=== PATIENT | female | born 1985 | race Hispanic/Latino ===

== ENCOUNTER 2018-04-23 23:44 | Emergency (ER) | payer OTHER, SELFPAY ==
[2018-04-24] MEDS ORDERED: Diazepam 5 MG TAB ONE (01:19)
== END 2018-04-24 01:33 | disposition home or self-care (01) ==
LOC: ERS 23:44
DX: M54.5 Low back pain (principal); F17.210 Nicotine dependence, cigarettes, uncomplicated
CPT/HCPCS: 99283

== ENCOUNTER 2019-04-16 23:51 | Emergency (ER) | payer SELFPAY ==
[2019-04-17 00:37] LABS: Bilirubin Negative (Negative); Blood, Urine Negative (Negative); Clarity Clear (Clear); Glucose, Urine (Dipstick) Normal (Negative); Leukocyte Negative Leu/uL (Negative); Nitrite Negative (Negative); Protein, Urine (Dipstick) Negative (Neg-Trace); Urobilinogen Normal mg/dL (Less than 2)
[2019-04-17 00:39] LABS: Pregnancy Test - Urine (BHCG) Negative (Negative); Pregu Control Background? CLEAR/WHITE (CLR/WHITE); Pregu Control Bar Appear? YES (CONTROL BAR); Specific Gravity 1.007 (1.002-1.036)
[2019-04-17] MEDS ORDERED: Ketorolac Tromethamine 30 MG/ML VIAL ONE (01:02)
== END 2019-04-17 01:15 | disposition home or self-care (01) ==
LOC: ERS 23:51
DX: R10.2 Pelvic and perineal pain (principal); F17.210 Nicotine dependence, cigarettes, uncomplicated; F41.9 Anxiety disorder, unspecified
CPT/HCPCS: 81003; 81025; 96372; 99284; J1885

== ENCOUNTER 2019-11-15 16:46 | Inpatient (IN) | payer OTHER, SELFPAY ==
[~2019-11-15 16:46] MED LIST: Iopamidol-370 76% 500 ML 1 ML ONE
[2019-11-15 17:29] LABS: #Eosinphils 0.2 thou/uL (0.0-0.7); #Lymphocytes 1.8 thou/uL (1.20-3.40); #Monocytes 0.4 thou/uL (0.11-0.59); #Neutrophils 5.1 thou/uL (1.40-6.50); %Basophils 0.6 % (0.0-1.0); %Eosinophils 2.7 % (0.0-10.0); %Lymphocytes 24.1 % (21.0-51.0); %Neutrophils 67.6 % (42.0-75.0); Hemoglobin 12.6 g/dL (12.0-16.0); Mean Corpuscular HGB CONC 33.3 g/dL (32.0-36.0); Mean Platelet Volume 8.4 fL (7.4-10.4); Platelet Count 247 thou/uL (130-400); RBC Distribution Width 11.3 % (11.5-14.5); Red Blood Cell (RBC) Count 3.92 mill/uL (4.20-5.40); White Blood Cell (WBC) Count 7.5 thou/uL (4.8-10.8)
[2019-11-15 17:38] LABS: BHCG - Serum Negative (NEGATIVE); Pregs Control Background? CLEAR/WHITE (CLR/WHITE); Pregs Control Bar Appear? YES (CONTROL BAR)
[2019-11-15 17:52] LABS: ALT (SGPT) 21 U/L (8-55); AST (SGOT) 13 U/L (5-34); Albumin 3.9 g/dL (3.5-5.0); Alkaline Phosphatase 60 U/L (40-110); Anion Gap 8 mmol/L (10-20); BUN (Urea Nitrogen) 10 mg/dL (7.0-18.7); Bilirubin, Total 0.2 mg/dL (0.2-1.2); Calc. Creatinine Clearance 0 mL/min (70-130); Calcium 8.4 mg/dL (7.8-10.44); Carbon Dioxide 28 mmol/L (22-29); Chloride 108 mmol/L (98-107); Estimated GFR-MDRD Greater than 90; Globulin 2.5 g/dL (2.4-3.5); Glucose 107 mg/dL (70-105); Potassium 3.5 mmol/L (3.5-5.1); Protein, Total 6.4 g/dL (6.0-8.3); Sodium 140 mmol/L (136-145)
--- NOTE | 2019-11-15 18:29 | ULT ---
EXAM: Pelvic ultrasound HISTORY: Pelvic pain for 2 days COMPARISON: 03/29/2013 TECHNIQUE: Multiple grayscale and color Doppler images were obtained in a transabdominal and transvag inal pelvic ultrasound. Spectral analysis of the Doppler waveforms of the ovaries were performed. FINDINGS: CERVIX: No evidence of nabothian cysts. UTERUS: Normal in size without focal abnormality. ENDOMETRIAL STRIPE: 4 mm. No free fluid is seen in the pelvis. RIGHT OVARY: Normal flow without focal mass. LEFT OVARY: Normal flow without focal mass. A dominant follicle seen in the left ovary. IMPRESSION: No significant pelvic abnormality
[2019-11-15] MEDS ORDERED: Ondansetron PF 4 MG/2 ML Vial ONE (18:34)
[2019-11-15] MEDS ORDERED: Ketorolac Tromethamine 30 MG/ML VIAL ONE (18:34)
[2019-11-15 19:00] LABS: Bacteria/HPF 4+ HPF (None Seen); Bilirubin Negative (Negative); Blood, Urine 2+ (Negative); Clarity Turbid (Clear); Glucose, Urine (Dipstick) Normal (Negative); Ketone, Urine Negative (Negative); Leukocyte 500 Leu/uL (Negative); Nitrite 2+ (Negative); Protein, Urine (Dipstick) 50 mg/dL (Neg-Trace); RBC/HPF Greater than 50 HPF (0-3); Specific Gravity, Urine 1.024 (1.002-1.036); Squamous Epithelial 21-50 HPF (0-3); Urobilinogen Normal mg/dL (Less than 2); WBC/HPF 21-50 HPF (0-3)
--- NOTE | 2019-11-15 19:23 | CT ---
CT Abdomen Pelvis W Con: 11/15/2019 6:26 PM CLINICAL INFORMATION: Right flank pain and groin pain COMPARISON: None. TECHNIQUE: Multiple contiguous axial images were obtained and a CT of the abdomen and pelvis with IV contrast. C oronal and sagittal reformats were performed. FINDINGS: Lower Chest: within normal limits. Abdomen: Liver: within normal limits. Bile Ducts: Normal caliber. Gallbladder: Contracted without calcified stones Pancreas: within normal limits. Spleen: within normal limits. Adrenals: Calcifications are seen in the right adrenal gland. No obvious adrenal mass is seen. Kidneys: Nonobstructing calcifications in both kidneys measuring up to 7 mm in size on the left. Ther e is moderate right hydronephrosis. Pelvis: Reproductive Organs: No pelvic masses. Ureters: 4 mm right mid ureteral calcification with moderate right hydroureter. Multiple phleboliths are seen in the pelvis. 2 of the calcifications in the right pelvis are near the right ureterovesical junction and distal ureteral calcification cannot be entirely excluded. The largest of these calcifications measures 4 mm. Bladder: within normal limits. Peritoneum: No ascites or free air, no fluid collection. Bowel: Normal caliber. Normal appendix. Mesentery and Retroperitoneum: No enlarged mesenteric or retroperitoneal lymph nodes. Vessels: Normal. Abdominal Wall: within normal limits. Bones: There is a bone island within the right iliac bone IMPRESSION: 1. Right ureteral calcifications with right-sided hydronephrosis 2. Bilateral nonobstructing renal calcifications
[2019-11-15] MEDS ORDERED: cefTRIAXone\\ROCEPHIN 1 GM VIAL ONE (19:37)
[2019-11-15 20:54] LABS: Bacteria/HPF 4+ HPF (None Seen); Bilirubin Negative (Negative); Blood, Urine 1+ (Negative); Clarity Clear (Clear); Glucose, Urine (Dipstick) Normal (Negative); Ketone, Urine Negative (Negative); Leukocyte 75 Leu/uL (Negative); Nitrite 2+ (Negative); Protein, Urine (Dipstick) Negative (Neg-Trace); RBC/HPF 21-50 HPF (0-3); Squamous Epithelial 0-3 HPF (0-3); Urobilinogen Normal mg/dL (Less than 2); pH, Urine 6.5 (5.0-9.0)
[2019-11-15 20:56] LABS: Specific Gravity, Urine 1.056 (1.002-1.036)
--- NOTE | 2019-11-15 20:57 | PDOC.HHP ---
Hospitalist HPI - History of Present Illness R flank pain History of Present Illness: Patient is a 34 year old female with no PMH who presents to ED for 2 days R flank pain. The pain is 10/10, colicky, intermittent, associated with nausea and vomiting. patient rarely gets UTIs and has never had a kidney stone. the pain radiates to R groin. no dysuria, no vaginal bleeding or discharge, no fever. in ED, pelvic US with no significant abnormalities. UA with UTI. CT w/ muiltiple stones in urinary tract, larges of which is 4mm R ureteral stone w/ R hydronephrosis. Dr Sullivan called and recommended admission w/ antibiotics, IVF, NPO. patient to be admitted for further workup and care. Hospitalist ROS - Review of Systems Constitutional: denies: fever, chills, sweats, weakness, malaise, other Eyes: denies: pain, vision change, conjunctivae inflammation, eyelid inflammation, redness, other ENT: denies: ear pain, ear discharge, nose pain, nose discharge, nose congestion , mouth pain, mouth swelling, throat pain, throat swelling, other Respiratory: denies: cough, dry, shortness of breath, hemoptysis, SOB with excertion, pleuritic pain, sputum, wheezing, other Cardiovascular: denies: chest pain, palpitations, orthopnea, paroxysmal noc. dyspnea, edema, light headedness, other Gastrointestinal: denies: nausea, vomiting, abdominal pain, diarrhea, constipation, melena, hematochezia, other Genitourinary: reports: other (R flank pain). denies: dysuria, frequency, incontinence, hematuria, retention Musculoskeletal: denies: neck pain, shoulder pain, arm pain, back pain, hand pain, leg pain, foot pain, other Skin: denies: rash, lesions, ceci, bruising, other Neurological: denies: weakness, numbness, incoordination, change in speech, confusion, seizures, other All other systems reviewed; all pertinent +/- noted in HPI/Subj - Medication Medications: reviewed, see admission documents Hospitalist History - Past Medical History Other Medical History: no significant pmh - Past Surgical History Other Surgical History: L ovarian cyst removal - Family History Family History: reports: no pertinent history - Social History Smoking Status: Current some day smoker (2 cig/day or so) Alcohol: reports: Rare - Exam General Appearance: NAD, awake alert Eye: PERRL, anicteric sclera ENT: normocephalic atraumatic, no oropharyngeal lesions, moist mucosa Neck: supple, symmetric, no JVD, no thyromegaly, no lymphadenopathy, no carotid bruit Heart: RRR, no murmur, no gallops, no rubs, normal peripheral pulses Respiratory: CTAB, no wheezes, no rales, no ronchi, normal chest expansion, no tachypnea, normal percussion Gastrointestinal: soft, non-tender, non-distended, normal bowel sounds, no palpable masses, no hepatomegaly, no splenomegaly, no bruit Gastrointestinal - other findings: no CVA tenderness Extremities: no cyanosis, no clubbing, no edema Skin: normal turgor, no lesions, no rashes Neurological: cranial nerve grossly intact, normal sensation to touch, no weakness, no focal deficits, no new deficit Musculoskeletal: normal tone, normal strength, no muscle wasting Psychiatric: normal affect, normal behavior, A&O x 3 Hospitalist Results - Labs Result Diagrams: 11/15/19 17:07 11/15/19 17:07 Lab results: WBC 7.5 thou/uL (4.8-10.8) 11/15/19 17:07 Hgb 12.6 g/dL (12.0-16.0) 11/15/19 17:07 Hct 37.7 % (36.0-47.0) 11/15/19 17:07 MCV 96.0 fL (78.0-98.0) 11/15/19 17:07 Plt Count 247 thou/uL (130-400) 11/15/19 17:07 Neutrophils % 67.6 % (42.0-75.0) 11/15/19 17:07 Sodium 140 mmol/L (136-145) 11/15/19 17:07 Potassium 3.5 mmol/L (3.5-5.1) 11/15/19 17:07 Chloride 108 mmol/L (98-107) H 11/15/19 17:07 Carbon Dioxide 28 mmol/L (22-29) 11/15/19 17:07 BUN 10 mg/dL (7.0-18.7) 11/15/19 17:07 Creatinine 0.72 mg/dL (0.6-1.1) 11/15/19 17:07 Glucose 107 mg/dL (70-105) H 11/15/19 17:07 Lactic Acid 1.8 mmol/L (0.5-2.2) 11/15/19 17:07 Calcium 8.4 mg/dL (7.8-10.44) 11/15/19 17:07 Total Bilirubin 0.2 mg/dL (0.2-1.2) 11/15/19 17:07 AST 13 U/L (5-34) 11/15/19 17:07 ALT 21 U/L (8-55) 11/15/19 17:07 Alkaline Phosphatase 60 U/L (40-110) 11/15/19 17:07 Serum Total Protein 6.4 g/dL (6.0-8.3) 11/15/19 17:07 Albumin 3.9 g/dL (3.5-5.0) 11/15/19 17:07 Urine Ketones Negative mg/dL (Negative) 11/15/19 18:22 Urine Blood 2+ (Negative) A 11/15/19 18:22 Urine Nitrite 2+ (Negative) A 11/15/19 18:22 Ur Leukocyte Esterase 500 Alec/uL (Negative) A 11/15/19 18:22 Urine RBC Greater than 50 HPF (0-3) A 11/15/19 18:22 Urine WBC 21-50 HPF (0-3) A 11/15/19 18:22 Ur Squamous Epith Cells 21-50 HPF (0-3) A 11/15/19 18:22 Urine Bacteria 4+ HPF (None Seen) A 11/15/19 18:22 Additional comment: VITAL SIGNS Tue Nov 15, 2019 18:40 ÁNGELA Sánchez, [place] BP: 118/95 MAP: 102 Pulse: 89 Resp: 18 Pain: 10 O2 sat: 100 on (Room Air) Time: 11/15/2019 18:40. imaging and laboratories reviewed, see HPI for pertinent positives Hospitalist H&P A/P - Plan Plan: Patient is a 34 year old female with no PMH who presents to ED for 2 days R flank pain. # R ureteral stone w/ R hydronephrosis # UTI patient presents for 2 days R flank pain, in ED, pelvic US with no significant abnormalities. UA with UTI. CT w/ 4mm R ureteral stone w/ R hydronephrosis. Dr Sullivan called and recommended admission w/ antibiotics, IVF, NPO. patient to be admitted for further workup and care. - admit to floor - IVF - continue ceftriaxone - follow culture results - appreciate urology input - strain urine
[2019-11-15] MEDS ORDERED: Acetaminophen 325 MG TAB PO PRN (21:10)
[2019-11-15] MEDS ORDERED: Guaifenesin DM 100-10/5 ML UDCUP PO PRN (21:10)
[2019-11-15] MEDS ORDERED: Promethazine HCl 12.5 MG in Sodium Chloride 0.9% 50 ML IVPB PRN (21:10)
[2019-11-15] MEDS ORDERED: hydrALAZINE 20 MG/ML VIAL SLOW IVP PRN (21:10)
[2019-11-15] MEDS ORDERED: cloNIDine 0.1 MG TAB PO PRN (21:10)
[2019-11-15] MEDS ORDERED: Labetalol HCl 100 MG/20 ML VIAL SLOW IVP PRN (21:10)
[2019-11-15] MEDS ORDERED: Ondansetron PF 4 MG/2 ML Vial IVP PRN (21:10)
[2019-11-15 22:23] VITALS: BMI 29.5
[2019-11-15] MEDS ORDERED: Senokot S 8.6-50 MG TAB PO PRN (22:34)
[2019-11-15] MEDS: Sodium Chloride 0.9% 1,000 ML IV SCH (22:42)
[2019-11-15] MEDS: Morphine 2 MG/ML VIAL SLOW IVP PRN (22:42)
[2019-11-15] MEDS: Melatonin 3 MG TAB PO PRN (22:43)
[2019-11-15 22:50] LABS: SARS-CoV-2 NAA Rapid Test Not Detected (NotDetected)
[2019-11-15] MEDS: HYDROcodone/Acetaminophen 5/325 mg Tablet PO PRN (23:39)
[2019-11-16] MEDS: Morphine 2 MG/ML VIAL SLOW IVP PRN ×2 (04:06→18:08)
[2019-11-16] MEDS: Sodium Chloride 0.9% 1,000 ML IV SCH ×4 (04:07→19:38)
[2019-11-16] MEDS ORDERED: Potassium Chloride 20 MEQ TAB PO SCH (06:45)
--- NOTE | 2019-11-16 07:57 | CON ---
DATE OF CONSULTATION: 11/16/2019 REASON FOR CONSULT: Right ureteral calculi with UTI. HISTORY OF PRESENT ILLNESS: Ms. Castro is a pleasant 34-year-old female, G2, P2, who presents with 3 to 4-day history of right lower quadrant abdominal discomfort characterized as 10/10 on the pain scale, intermittent in nature with associated nausea and vomiting. She denied history of recurrent UTI, fever, or cough. CT obtained in the emergency room with IV contrast demonstrated right hydronephrosis with mid ureteral calculi measuring 4 mm. There was other contralateral renal calculi, nonobstructing. Her initial UA demonstrated contamination demonstrating nitrite positive, 4+ bacteria. She was provided Levaquin, Rocephin in the emergency room, and I have requested a catheterized UA demonstrating 4+ bacteria, with no epithelials. She is currently stable with no fever. Vital signs stable. She has been n.p.o. PAST MEDICAL HISTORY: Includes pelvic pain due to ovarian cyst. PAST SURGICAL HISTORY: Left ovarian cyst removal. No known drug allergies. 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 REVIEW OF SYSTEMS: A 10-point review of systems as above. CURRENT MEDICATIONS: Include; 1. Tylenol. 2. [place]. 3. Rocephin. 4. [place]. 5. Pepcid. 6. Robitussin. 7. Hydralazine. 8. Melatonin. 9. Morphine. 10. Zofran. 11. Potassium chloride. PHYSICAL EXAMINATION: VITAL SIGNS: Stable. She is 98, 61, 16, 99, and 106/63. GENERAL: The patient is in no acute distress. Pleasant female. HEENT: Grossly unremarkable. HEART: Regular rate. LUNGS: Clear. ABDOMEN: Soft, nontender, and nondistended with no CVA tenderness. : Demonstrates no obvious mass or pain on bimanual exam. EXTREMITIES: No cyanosis, clubbing, or edema. NEUROLOGIC: No gross focal deficits. PSYCHIATRIC: Appears to be appropriate and intact. SKIN: No lesions, however, there are multiple tattoos. MUSCULOSKELETAL: Normal range of motion. Gait appears to be within normal limits. PERTINENT LABORATORY AND IMAGING DATA: White count of 7, hemoglobin 12, and platelet 247. Creatinine 0.7, calcium 8.4. Lactic acid is 1.8 within normal limits. UA catheterized demonstrates 4+ bacteria, 2+ nitrites, positive for rbc 's and wbc's. Culture has been set. COVID rapid testing is negative. DIAGNOSTIC STUDIES: CT of the abdomen and pelvis with contrast, which I reviewed myself demonstrating right hydronephrosis due to 4-mm right ureteral calculi at the level of L3. There are multiple pelvic phleboliths. Nonobstructing right punctate renal lithiasis x2, there are left renal calculi x3, punctate x2, lower pole 7 mm. Per radiologist, there are pelvic calcifications in the pelvis, cannot rule out further distal ureteral calculi. IMPRESSION AND PLAN: Ms. Castro is a pleasant 34-year-old female with no significant past medical history, who presents with positive urine with 4+ bacteria with right hydronephrosis due to mid ureteral calculi. She is clinically stable. However, given presentation with an infected stone with hydronephrosis, she required cysto right stent. She has been fully informed that a staged ureteroscopy laser lithotripsy will be performed at a later time. Job ID: [id number] MTDD
[2019-11-16] MEDS: Polyethylene Glycol 3350 17 GM Packet PO SCH (09:24)
[2019-11-16] MEDS: Famotidine 20 MG TAB PO SCH ×2 (09:24→19:38)
[2019-11-16] MEDS ORDERED: Iothalamate Meglumine 60% 50 ML VIAL FS ONE (09:25)
[2019-11-16] MEDS ORDERED: Midazolam HCl 2 mg/2 ml Vial ONE ×2 (10:06→12:32)
[2019-11-16] MEDS ORDERED: Dexamethasone 20 MG/5 ML VIAL ONE (10:25)
[2019-11-16] MEDS ORDERED: Ondansetron PF 4 MG/2 ML Vial ONE (10:25)
[2019-11-16] MEDS ORDERED: PROPOFOL 200 MG/20 ML VIAL ONE (10:25)
[2019-11-16] MEDS ORDERED: Lidocaine 1% PF 5 ML VIAL ONE (10:25)
[2019-11-16] MEDS ORDERED: Fentanyl 100 MCG/2 ML VIAL ONE ×3 (12:32→13:56)
[2019-11-16] MEDS ORDERED: Levofloxacin 500 mg/D5W 100 ml Premix Bag ONE (12:41)
[2019-11-16] MEDS ORDERED: Phenazopyridine HCl 97.5 MG TABLET PO PRN (13:21)
[2019-11-16] MEDS ORDERED: Oxybutynin 5 MG TAB PO PRN (13:21)
[2019-11-16] MEDS ORDERED: Promethazine HCl 25 MG/ML VIAL SLOW IVP PRN (13:32)
[2019-11-16] MEDS ORDERED: Promethazine HCl 25 MG/ML VIAL IM PRN (13:32)
[2019-11-16] MEDS ORDERED: Ondansetron HCl/PF 4 MG/2 ML Vial IVP PRN (13:32)
--- NOTE | 2019-11-16 14:12 | RAD ---
XR IVP Retrograde History: Stent placement Comparison: None. Findings: 5 images were obtained from the procedure room. Interval placement of a double-J ureteral s tent. Impression: Fluoroscopy for procedural purposes.
--- NOTE | 2019-11-16 14:45 | OP ---
DATE OF PROCEDURE: 11/16/2019 PREOPERATIVE DIAGNOSES: 1. Right midureteral calculi, 4 mm, right nonobstructing punctate renal lithiasis x2. 2. Left nonobstructing renal calculi x3: Two punctate, largest in the left lower pole, 7 mm. 3. Possible distal pelvic phleboliths versus 2nd nidus of distal ureteral stone. POSTOPERATIVE DIAGNOSES: 1. Right midureteral calculi, 4 mm, right nonobstructing punctate renal lithiasis x2. 2. Left nonobstructing renal calculi x3: Two punctate, largest in the left lower pole, 7 mm. 3. Possible distal pelvic phleboliths versus 2nd nidus of distal ureteral stone. PROCEDURES PERFORMED: 1. Cystoscopy. 2. Right retrograde. 3. A 4.8 x 30 double-J ureteral stent with distal tail in situ. ANESTHESIA: LMA. COMPLICATIONS: None apparent. DISPOSITION: To recovery room in stable condition. INTRAOPERATIVE FINDINGS: corkscrewing of the right proximal ureter, likely due to high-grade obstruction. INDICATIONS FOR PROCEDURE AND HISTORY: Ms. Castro is a pleasant 34-year-old female who presented with 3- to 4-day history of right flank pain. Her UA is positive for UTI component. CT results demonstrating above urolithiasis and she presents for cystoscopy and stent. She has been fully informed that staged intervention will be performed with ureteroscopy and laser lithotripsy at a later date as she presents with UA consistent with UTI. Risks and complications of procedure have been discussed with the patient in detail including, but not limited to, bleeding, pain, infection, injury to adjacent organs, and ureteral, renal, and kidney injury. All questions answered to her satisfaction. She desired to proceed. DESCRIPTION OF PROCEDURE: After an informed consent was signed, the patient was taken to the operating room and placed in a dorsal lithotomy position with the genital area prepped and draped in the usual surgical sterile fashion. A 21- Brazilian cystoscope was utilized for cystoscopy, which demonstrated normal bladder. UOs were in normal orthotopic position. No bladder calculi seen. The UOs are somewhat patulous. An open-ended catheter was utilized to intubate the right UO and a 0.035 Sensor wire was placed into the proximal ureter. Although, it may have been in the kidney, I was unsure if this was in the proximal ureter. Therefore, we performed a gentle retrograde pyelogram, demonstrating hydronephrosis, tortuosity of the ureter with proximal corkscrewing. I was able to get a wire passed through the J hooking of the proximal ureter into the renal pelvis; however, the corkscrew remained despite having the wire placed. I attempted to pass a 6-Brazilian 28; however, it would not pass at the midureter with buckling. Therefore, I transitioned to a 4.8-Brazilian x 30 cm ureteral stent. We were able to pass this to the level of the renal pelvis just proximal to the corkscrewing in the renal pelvis proximal ureter. It would not pass further due to corkscrewing of ureter. As the stent sits proximal to the obstruction, moreover at the junction of the renal pelvis, this was left in situ. Adequate distal coil was seen. Distal tail was left in situ. We will monitor the patient overnight with broad-spectrum antibiotic therapy in anticipation maybe discharged home likely tomorrow to make sure that she does not present with septic parameters. Job ID: [id number] MTDD
[2019-11-16] MEDS: HYDROcodone/Acetaminophen 5/325 mg Tablet PO PRN ×2 (15:12→19:38)
[2019-11-16] MEDS: Ketorolac Tromethamine 30 MG/ML VIAL IVP PRN ×2 (15:34→21:46)
[2019-11-16] MEDS: Hyoscyamine Sulfate SL 0.125 mg Tablet SL SCH (18:08)
[2019-11-16] MEDS: Docusate 100 MG CAP PO SCH (19:38)
[2019-11-16] MEDS ORDERED: cefTRIAXone\\ROCEPHIN 1 GM in Sodium Chloride 0.9% 100 ML IVPB SCH (21:00)
[2019-11-17] MEDS: HYDROcodone/Acetaminophen 5/325 mg Tablet PO PRN ×3 (00:19→09:38)
[2019-11-17] MEDS: Hyoscyamine Sulfate SL 0.125 mg Tablet SL SCH ×2 (00:19→06:03)
[2019-11-17] MEDS: Melatonin 3 MG TAB PO PRN (00:19)
[2019-11-17] MEDS: Ketorolac Tromethamine 30 MG/ML VIAL IVP PRN (03:15)
[2019-11-17 03:30] LABS: #Lymphocytes 1.3 thou/uL (1.20-3.40); #Monocytes 0.4 thou/uL (0.11-0.59); #Neutrophils 4.8 thou/uL (1.40-6.50); %Basophils 0.7 % (0.0-1.0); %Eosinophils 0.2 % (0.0-10.0); %Lymphocytes 19.9 % (21.0-51.0); %Monocytes 6.3 % (0.0-10.0); Hemoglobin 10.9 g/dL (12.0-16.0); Mean Corpuscular HGB CONC 33.5 g/dL (32.0-36.0); Mean Corpuscular Hemoglobin 32.3 pg (27.0-31.0); Mean Corpuscular Volume 96.4 fL (78.0-98.0); Mean Platelet Volume 8.1 fL (7.4-10.4); Platelet Count 187 thou/uL (130-400); Red Blood Cell (RBC) Count 3.39 mill/uL (4.20-5.40); White Blood Cell (WBC) Count 6.5 thou/uL (4.8-10.8)
[2019-11-17 03:54] LABS: Anion Gap 10 mmol/L (10-20); BUN (Urea Nitrogen) 7 mg/dL (7.0-18.7); Calc. Creatinine Clearance 154 mL/min (70-130); Carbon Dioxide 23 mmol/L (22-29); Chloride 110 mmol/L (98-107); Estimated GFR-MDRD Greater than 90; Glucose 98 mg/dL (70-105); Potassium 3.9 mmol/L (3.5-5.1); Sodium 139 mmol/L (136-145)
--- NOTE | 2019-11-17 08:01 | PRG ---
DATE OF SERVICE: 11/17/2019 SUBJECTIVE: The patient did okay overnight, she does not require morphine, however, requires [place] for stent discomfort. Afebrile. Denies chills. Pain localized in the lower quadrant. OBJECTIVE: VITAL SIGNS: Stable, temperature 99.1, pulse 75, respiratory rate 16, O2 saturations 96, and blood pressure 123/81. I's and O's 3900 in, 600 out. GENERAL: The patient is in no acute distress. HEART: Regular rate. LUNGS: Clear. ABDOMEN: Soft. No rigidity. No rebound. LABORATORY DATA: A.m. labs reviewed demonstrating stable white count at 6, hemoglobin 10.9, and platelet 187. Renal function stable with creatinine 0.6. Her UA thus far is pending, mixed erickson. Repeat UA catheterized specimen is also pending. She remains clinically stable. IMPRESSION AND PLAN: 1. Ms. Castro is a 34-year-old female who presented with urinalysis suspicious for urinary tract infection, right ureteral calculi status postop day #1 cysto right retrograde stent. 2. Contralateral left nonobstructing renal calculi x3. The patient is clinically stable. I informed her that if she does well off IV pain medications/Toradol, can be discharged home today with close followup with me to review urine culture. I would recommend she be discharged with ciprofloxacin, [place] 5/325, Azo, Colace, and oxybutynin 10 mg. These postop medications were sent to [facility] on [address] [place] [address], nursing staff notified. If she is cleared by Medical Service, may be discharged with appropriate medication, if she does not require IV pain medication. Close followup with me tomorrow, pending review of final urine culture, possible ureteroscopy, laser lithotripsy in the next 1 to 2 weeks. Job ID: [id number] [facility]
[2019-11-17] MEDS: Docusate 100 MG CAP PO SCH (08:45)
[2019-11-17] MEDS: Famotidine 20 MG TAB PO SCH (08:46)
[2019-11-17] MEDS: Polyethylene Glycol 3350 17 GM Packet PO SCH (08:47)
[2019-11-17 08:53] VITALS: BP 148/97; TEMP 98.2
--- NOTE | 2019-11-17 08:58 | PDOC.HOSPP ---
- Subjective Encounter Date: 11/16/19 Encounter Time: 13:00 Subjective: pt up in bed no complains - Objective Vital Signs & Weight: Vital Signs (12 hours) Temp Pulse Resp BP Pulse Ox 11/17/19 08:00 98.2 F 78 18 148/97 H 97 Weight Admit Weight 172 lb 3.2 oz Weight 172 lb 3.2 oz I&O: 11/16/19 11/17/19 11/18/19 06:59 06:59 06:59 Intake Total 1650 3900 Output Total 1100 600 Balance 550 3300 Result Diagrams: 11/17/19 03:24 11/17/19 03:24 Hospitalist ROS - Review of Systems Respiratory: denies: cough, dry, shortness of breath, hemoptysis, SOB with excertion, pleuritic pain, sputum, wheezing, other Cardiovascular: denies: chest pain, palpitations, orthopnea, paroxysmal noc. dyspnea, edema, light headedness, other Gastrointestinal: denies: nausea, vomiting, abdominal pain, diarrhea, constipation, melena, hematochezia, other - Medication Medications: Active Medications Generic Name Dose Route Start Last Admin Trade Name Freq PRN Reason Stop Dose Admin Hydrocodone Bitart/Acetaminophen 1 tab 11/15/19 21:10 11/17/19 06:03 [place] 5/325 PO 1 tab Q4H PRN Administration Moderate Pain (4-6) Docusate Sodium 100 mg 11/16/19 21:00 11/17/19 08:45 Colace PO 100 mg BID OFE Administration Famotidine 20 mg 11/16/19 09:00 11/17/19 08:46 Pepcid PO 20 mg BID OFE Administration Hyoscyamine Sulfate 0.25 mg 11/16/19 18:00 11/17/19 06:03 Levsin Sl SL 0.25 mg Q6HR OFE Administration Sodium Chloride 1,000 mls @ 150 mls/hr 11/15/19 21:15 11/16/19 19:38 Normal Saline 0.9% IV 1,000 mls .Q6H40M OFE Administration Ceftriaxone Sodium 1 gm/ 100 mls @ 200 mls/hr 11/16/19 21:00 11/16/19 19:37 Sodium Chloride IVPB 100 mls Q24HR OFE Administration Melatonin 3 mg 11/15/19 22:34 11/17/19 00:19 Melatonin PO 3 mg HS PRN Administration Insomnia Ondansetron HCl 4 mg 11/15/19 21:10 11/16/19 18:08 Zofran IVP 4 mg Q6H PRN Administration Nausea/Vomiting use 1st Oxybutynin Chloride 5 mg 11/16/19 13:21 11/16/19 15:13 Ditropan PO 5 mg Q8H PRN Administration Bladder Spasms Polyethylene Glycol 17 gm 11/16/19 09:00 11/17/19 08:47 Miralax PO Not Given DAILY [facility] Senna/Docusate Sodium 2 tab 11/15/19 22:34 11/15/19 22:43 Senokot S PO 2 tab BIDPRN PRN Administration Constipation Sodium Chloride 10 ml 11/16/19 09:00 11/16/19 19:50 Flush - Normal Saline IVF Not Given Q12HR OFE - Exam Neck: negative: supple, symmetric, no JVD, no thyromegaly, no lymphadenopathy, no carotid bruit, JVD Heart: negative: RRR, no murmur, no gallops, no rubs, normal peripheral pulses, irregular, diminshed peripheral pulses, murmur present, II/IV, III/IV Respiratory: negative: CTAB, no wheezes, no rales, no ronchi, normal chest expansion, no tachypnea, normal percussion, rales, rhonchi, tachypneic, wheezes Hosp A/P (1) UTI (urinary tract infection) Status: Acute (2) Hydronephrosis, right Code(s): N13.30 - UNSPECIFIED HYDRONEPHROSIS Status: Acute (3) Ureteral stone Code(s): N20.1 - CALCULUS OF URETER Status: Acute - Plan pt underwent a cystoscopy/right retrograd and a j ureteral sent. will continue abx for now. possible discharge home in am.
[2019-11-17] MEDS ORDERED: Enoxaparin Sodium 40 MG/0.4 ML SYRINGE SC SCH (09:00)
--- NOTE | 2019-11-17 09:51 | DIS ---
DATE OF ADMISSION: 11/15/2019 DATE OF DISCHARGE: 11/17/2019 DISCHARGE DIAGNOSES: As of the following; 1. Abdominal pain. 2. Right hydronephrosis. 3. Possible urinary tract infection. 4. Left nonobstructing renal calculi. HOSPITAL COURSE: The patient is a 34-year-old female, who initially presented to the hospital with complaints of abdominal pain. She underwent a CT of abdomen and pelvis, which indicated she had right ureteral calcification and right-sided hydronephrosis and bilateral nonobstructing renal calcification. At this time, she was seen by Urology and underwent a cystoscopy with right retrograde stent to the right side. She had right mid-ureteral calculi which was 4 mm, right nonobstructing punctated right lithiasis x2. She also had left nonobstructing renal calculi x3, two punctated largest in the left lower pole 7 mm and possible distal pelvic phleboliths versus of the distal urethral stone. She initially was put on antibiotics for possible UTI. She will be discharged home today. She is doing well. Her home medications have been restarted. She is going to be discharged on the following medications; Cipro, [place], Azo, Colace, and oxybutynin. This is per Urology's recommendation. PHYSICAL EXAMINATION: VITAL SIGNS: Temperature of 98.2, pulse 78, respiratory rate 18, oxygen saturation 97% on room air, and blood pressure 148/97. GENERAL: She is awake, alert, and oriented x3. Does not appear in distress. CV: S1 and S2 present. No murmurs, rubs, or gallops. ABDOMEN: Soft and nontender. Bowel sounds are present x2. Again, she will be discharged home. She will follow up with Urology. She has an appointment with her tomorrow. Her urine culture today indicated mixed skin erickson. Job ID: [id number]
[2019-11-17] MEDS: Sodium Chloride 0.9% 1,000 ML IV SCH (10:58)
== END 2019-11-17 10:56 | disposition home or self-care (01) | DRG 661 ==
LOC: ERS 16:46 → ONC 20:23
PROVIDERS: ADMIT Surgery; ATTEND Surgery
PROC: 0T768DZ Dilation of Right Ureter with Intraluminal Device, Via Natural or Artificial Opening Endoscopic (ICD-10-PCS; principal; 2019-11-16)
PROC: BT1DYZZ Fluoroscopy of Right Kidney, Ureter and Bladder using Other Contrast (ICD-10-PCS; 2019-11-16)
DX: N13.6 Pyonephrosis (principal); Z20.828 Contact with and (suspected) exposure to other viral communicable diseases; I87.8 Other specified disorders of veins; F17.210 Nicotine dependence, cigarettes, uncomplicated; Z98.890 Other specified postprocedural states
CPT/HCPCS: 36415; 51701; 74177; 74420; 76856; 80048; 80053; 81003; 81015; 83605; 84703; 85025; 87077; 87086; 87186; 96361; 96365; 96375; J0696; J1100; J1885; J1956; J2250; J2270; J2405; J2704; J3010; J3490; Q9967; U0002

== ENCOUNTER 2019-11-23 06:19 | Day surgery (SDC) | payer SELFPAY ==
[2019-11-21 11:25] VITALS: BMI 29.8
[2019-11-23] MEDS ORDERED: cefTRIAXone\\ROCEPHIN 2 GM VIAL ONE (06:34)
[2019-11-23] MEDS ORDERED: Sodium Chloride 0.9% 100 ML ONE (06:34)
[2019-11-23] MEDS ORDERED: Iothalamate Meglumine 60% 50 ML VIAL FS ONE (06:59)
[2019-11-23] MEDS ORDERED: Midazolam HCl 2 mg/2 ml Vial ONE (07:11)
[2019-11-23] MEDS ORDERED: Fentanyl 100 MCG/2 ML VIAL ONE ×3 (07:25→08:39)
--- NOTE | 2019-11-23 08:00 | RAD ---
EXAM: Single view of the abdomen HISTORY: Kidney stones COMPARISON: 11/16/2019 FINDINGS: Single view of the abdomen shows a nonspecific, nonobstructive bowel gas pattern. A 6 mm ca lcification projects over the left renal shadow. There is a right ureteral stent which appears to have passed distally. The proximal portion of the stent is in the region of the mid ureter and the di stal portion the stent is curled in the urinary bladder. There are a few calcifications adjacent to the distal aspect of the stent near the ureterovesical junction. The bones are unremarkable. IMPRESSION: 1. Extruding right ureteral stent with likely calcifications adjacent to the stent near the right ure terovesical junction 2. Left nephrolithiasis
--- NOTE | 2019-11-23 08:26 | RAD ---
EXAM: XR IVP Retrograde PROVIDED CLINICAL HISTORY: Right ureteral stent replacement COMPARISON: 11/16/2019 FINDINGS/IMPRESSION: Initial image demonstrates removal of the previously seen right ureteral stent. There is opacificatio n of the right renal collecting system and portions of the right ureter with guidewire in place. Previously seen right proximal ureteral calculus at the L4-5 level is not well seen this study. There is a calculus overlying the inferior pole left kidney related to renal calculus. Final image demonstrates a right ureteral stent in place. Correlation with intraoperative findings is recommended .
[2019-11-23] MEDS ORDERED: Oxybutynin 5 MG TAB ONE (08:40)
[2019-11-23] MEDS ORDERED: Phenazopyridine HCl 97.5 MG TABLET ONE ×2 (08:40)
[2019-11-23] MEDS ORDERED: Rocuronium Bromide 10 MG/ML (10ML VIAL) ONE (09:52)
[2019-11-23] MEDS ORDERED: Ondansetron PF 4 MG/2 ML Vial ONE (09:52)
[2019-11-23] MEDS ORDERED: Lidocaine 1% PF 5 ML VIAL ONE (09:52)
[2019-11-23] MEDS ORDERED: Glycopyrrolate 0.2 MG/ML 5 ML SYRINGE ONE (09:52)
[2019-11-23] MEDS ORDERED: PHENYLEPHRINE-NS 100 MCG/ML 10 ML SYRINGE ONE (09:52)
[2019-11-23] MEDS ORDERED: Dexamethasone 20 MG/5 ML VIAL ONE (09:52)
[2019-11-23] MEDS ORDERED: PROPOFOL 200 MG/20 ML VIAL ONE (09:52)
--- NOTE | 2019-11-23 11:17 | OP ---
DATE OF PROCEDURE: 11/23/2019 PREOPERATIVE DIAGNOSES: 1. A 34-year-old female with history of Escherichia coli urinary tract infection , right ureteral calculi. 2. History of bilateral nonobstructing renal calculi: Right punctate x2, left punctate x2, and left lower pole 7-mm stone. POSTOPERATIVE DIAGNOSES: 1. A 34-year-old female with history of Escherichia coli urinary tract infection , right ureteral calculi. 2. History of bilateral nonobstructing renal calculi: Right punctate x2, left punctate x2, and left lower pole 7-mm stone. PROCEDURES PERFORMED: Cystoscopy, right retrograde pyelogram 6 x 30 double-J ureteral stent exchange, rigid ureteroscopy, flexible ureteroscopy, laser lithotripsy of ureteral calculi, basket extraction of stone fragments. ANESTHESIA: General. COMPLICATIONS: None apparent. INTRAOPERATIVE FINDINGS: 1. Multiple right ureteral calculi x3 in the [id number] ureter. 2. Multiple Brady's plaques consistent with recurrent urolithiasis. 3. Right renal calculi in the papilla treated with laser lithotripsy. INDICATIONS FOR PROCEDURE AND HISTORY: Ms. Castro is a 34-year-old female whom I seen as an inpatient consultation as she presented with 10/10 pain, workup on the CT demonstrated right hydronephrosis with mid ureteral calculi at the level of L4. There was a questionable lower ureteral calculi stone nidus versus phlebolith in the lower pelvis. CT also demonstrated bilateral nonobstructing renal calculi as above. As she had E coli UTI, she underwent ureteral stent placement. Initial stent was challenging to place due to tortuosity of the proximal ureter. She presents today for ureteroscopy laser lithotripsy as a repeat urine culture is negative. Risks and complications of the procedure were reviewed with her in detail including, but not limited to, bleeding, pain, infection, injury to adjacent organs, urosepsis, stricture formation, possible secondary procedure reviewed. All questions were answered to her satisfaction and she desired to proceed without reservation. DESCRIPTION OF PROCEDURE: After an informed consent was signed, the patient was taken to the operating room, placed in a dorsal lithotomy position with the genital area prepped and draped in the usual surgical sterile fashion. A 21-Azerbaijani cystoscope was utilized for cystoscopy, which demonstrated normal bladder mucosa and the previously placed ureteral stent was seen in the bladder. The stent did migrate into the mid to distal ureter and this was extracted to the level of the meatus and a 0.035 Sensor wire was passed. The Sensor wire had some hang up in the proximal ureter with previous tortuosity. However, I was able to negotiate this up to the right upper pole. Using a 10-Azerbaijani dual-lumen access sheath, we performed a retrograde pyelogram which confirmed the wire to be in the right upper pole. At this time, we performed a rigid ureteroscopy, as there was some hang up in the distal ureter with an open-ended catheter. Rigid ureteroscopy was performed with a Rae scope. At the level of the distal ureter, we found a stone nidus about 3 to 4 mm and this was basket extracted. Further ureteroscopy demonstrated 2 other stone niduses. The second nidus was able to be also basket extracted; however, the third nidus was large. Therefore, we entrapped the stone in the basket and using a 200 micron laser fiber at 1.0 joules, we laser lithotripsied this into small fragments and nidus was basket extracted. I did pass the scope up to the proximal ureter to ensure that there was no further stone debris. At the level of the proximal ureter, there was tortuosity hindering scope to pass. Therefore, I did transition to a flexible ureteroscope. As the safety wire is in situ using a 10-Azerbaijani dual-lumen access sheath, we passed a second working wire 0.035 Super Stiff. The Super Stiff wire was utilized as a working wire to pass a flexible ureteroscope to the level of the upper pole kidney. Surveying of the collecting system demonstrated multiple Brady's plaques, there was a small stone adherent to the papilla in the mid to lower pole, and this was laser lithotripsied to tiny fragments. Surveillance of the ureter demonstrated no evidence of ureteral mucosa trauma. There was a small nidus in the distal intramural ureter, which was also basket extracted. There was endoscopic clearance noted in the ureter at the end of the procedure. Bladder was completely emptied. A 6 x 30 double-J ureteral stent was placed without difficulty. Proper coil in the upper pole in the bladder was noted. She tolerated the procedure well. She will be discharged with ciprofloxacin for 10 days due to prior history of positive urine culture, Ditropan 10 mg XL one p.o. daily, tramadol 50 mg 1 to 2 p.o. q.6 hours p.r.n. and Colace 100 mg p.r.n. She will follow up with me next for cysto stent pull in the office. Job ID: [id number] MTDD
== END 2019-11-23 10:47 | disposition home or self-care (01) ==
LOC: SDC 06:19
PROVIDERS: ATTEND Urology
PROC: 0T768DZ Dilation of Right Ureter with Intraluminal Device, Via Natural or Artificial Opening Endoscopic (ICD-10-PCS; principal; 2019-11-23)
PROC: 0TC38ZZ Extirpation of Matter from Right Kidney Pelvis, Via Natural or Artificial Opening Endoscopic (ICD-10-PCS; principal; 2019-11-23)
PROC: 0TC68ZZ Extirpation of Matter from Right Ureter, Via Natural or Artificial Opening Endoscopic (ICD-10-PCS; principal; 2019-11-23)
DX: N13.2 Hydronephrosis with renal and ureteral calculous obstruction (principal); N76.0 Acute vaginitis; F17.210 Nicotine dependence, cigarettes, uncomplicated; Z87.440 Personal history of urinary (tract) infections
CPT/HCPCS: 74018; 74420; 82365; 88300; J0696; J1100; J2250; J2405; J2704; J3010; J3490

== ENCOUNTER 2020-03-09 10:39 | Emergency (ER) | payer OTHER, SELFPAY ==
[2020-03-09 11:08] LABS: #Basophils 0.1 thou/uL (0.0-0.2); #Eosinphils 0.3 thou/uL (0.0-0.7); #Lymphocytes 1.6 thou/uL (1.20-3.40); #Monocytes 0.5 thou/uL (0.11-0.59); #Neutrophils 9.6 thou/uL (1.40-6.50); %Basophils 0.7 % (0.0-1.0); %Eosinophils 2.1 % (0.0-10.0); %Lymphocytes 13.4 % (21.0-51.0); %Monocytes 4.1 % (0.0-10.0); %Neutrophils 79.6 % (42.0-75.0); Hemoglobin 13.8 g/dL (12.0-16.0); Mean Corpuscular HGB CONC 33.6 g/dL (32.0-36.0); Mean Corpuscular Hemoglobin 31.5 pg (27.0-31.0); Mean Corpuscular Volume 93.7 fL (78.0-98.0); Mean Platelet Volume 7.7 fL (7.4-10.4); Platelet Count 258 thou/uL (130-400); RBC Distribution Width 11.3 % (11.5-14.5); Red Blood Cell (RBC) Count 4.37 mill/uL (4.20-5.40)
[2020-03-09] MEDS ORDERED: Ondansetron ODT 4 MG TAB ONE (11:28)
[2020-03-09 11:29] LABS: ALT (SGPT) 24 U/L (8-55); AST (SGOT) 13 U/L (5-34); Albumin 4.5 g/dL (3.5-5.0); Alkaline Phosphatase 62 U/L (40-110); Anion Gap 12 mmol/L (10-20); BUN (Urea Nitrogen) 10 mg/dL (7.0-18.7); Bilirubin, Total 0.5 mg/dL (0.2-1.2); Calc. Creatinine Clearance 0 mL/min (70-130); Calcium 8.7 mg/dL (7.8-10.44); Carbon Dioxide 24 mmol/L (22-29); Chloride 107 mmol/L (98-107); Globulin 2.6 g/dL (2.4-3.5); Glucose 101 mg/dL (70-105); Potassium 4.2 mmol/L (3.5-5.1); Protein, Total 7.1 g/dL (6.0-8.3); Sodium 139 mmol/L (136-145)
[2020-03-09 11:46] LABS: Bacteria/HPF None Seen HPF (None Seen); Bilirubin Negative (Negative); Blood, Urine 3+ (Negative); Clarity Clear (Clear); Glucose, Urine (Dipstick) Normal (Negative); Ketone, Urine Negative (Negative); Leukocyte Negative Leu/uL (Negative); Nitrite Negative (Negative); Protein, Urine (Dipstick) 30 mg/dL (Neg-Trace); Specific Gravity, Urine 1.026 (1.002-1.036); Squamous Epithelial 0-3 HPF (0-3); Urobilinogen Normal mg/dL (Less than 2); WBC/HPF 0-3 HPF (0-3); pH, Urine 6.5 (5.0-9.0)
[2020-03-09] MEDS ORDERED: Fentanyl 100 MCG/2 ML VIAL ONE (12:16)
[2020-03-09] MEDS ORDERED: Ketorolac Tromethamine 30 MG/ML VIAL ONE (12:16)
[2020-03-09] MEDS ORDERED: Ondansetron PF 4 MG/2 ML Vial ONE ×2 (12:16→12:19)
[2020-03-09 12:30] LABS: BHCG - Serum POSITIVE (NEGATIVE); Pregs Control Background? CLEAR/WHITE (CLR/WHITE); Pregs Control Bar Appear? YES (CONTROL BAR)
[2020-03-09 12:46] LABS: CK (CPK) 67 U/L (29-168); Lipase 16 U/L (8-78)
--- NOTE | 2020-03-09 14:34 | ULT ---
Exam: Transabdominal and endovaginal pelvic ultrasound HISTORY:Pain. Evaluate for ectopic . COMPARISON: None TECHNIQUE: Transabdominal and endovaginal imaging of the pelvis is performed. Ovaries are interrogate d with grayscale, color flow, Doppler imaging and spectral wave form analysis FINDINGS: Uterus: No myometrial masses. Uterus measurin.8 x 5.2 x 8.5 cm. Endometrium: Within the endometrium, there is irregular anechoic focus which may represent a gestatio nal sac. There is a hypoechoic focus within the endometrium which may represent a pole. This focus measures 1.2 cm which would correspond to gestational age of 7 weeks 3 days. There are no heart tones. Free fluid: There is free fluid in the cul-de-sac Right ovary: Normal echotexture Right ovary measurement: 3.4 x 2.2 x 1.5 cm Left ovary: There is a predominantly focus with a central hypoechoic area in the left adnexa measuri ng 4.6 x 3.6 x 2.8 cm. This lesion appears to be paraovarian in location. Left ovary measurements: 5.1 x 3.5 x 2.4 cm Ovarian Doppler: There is vascular flow to the right ovary. Vascular flow to the left ovarian mass as well as a left o vary is not appreciated. IMPRESSION: 1. Possible irregular gestational sac with questionable pole. There are absent heart tone s. Findings may represent an early intrauterine versus a blighted ovum. 2. Heterogeneous echotexture involving the left ovary/adnexa. Complex exophytic left ovarian cyst is raised. A concomitant ectopic cannot be excluded. Note, there is no significant flow in the left ovary. Possibility of ovarian torsion cannot be excluded. Results study discussed with Dr. Doyle 03/09/2020 2:31 PM Code CR ADDENDUM: Additional imaging was performed. There does appear to be flow to the left ovary. The gestational sac continues to be irregular. There are absent heart tones. The soft tissue echotexture in the left adnexa, paraovarian in location is not typical for a corpus luteal cyst. The possibility of a bl ighted ovum/nonviable intrauterine with a concomitant ectopic left adnexal is the favored differential consideration. Follow-up ultrasound and serial beta-hCGs are recommended Findings conveyed to Dr. Gilbert 03/09/2020 at 3:46 PM Code CR Transcribed Date/Time: 03/09/2020 2:40 PM
--- NOTE | 2020-03-10 08:19 | CON ---
DATE OF CONSULTATION: 03/09/2020 REQUESTING PHYSICIAN: Anderson Doyle MD, ER Physician. REASON FOR CONSULT: Possible adnexal torsion. HISTORY OF PRESENT ILLNESS: Ms. Castro is a 34-year-old G4, P3, with a history of irregular menstrual cycles with a reported last menstrual period one month ago, who presents complaining of intermittent left-sided pain and vaginal spotting. At the time of her presentation, she did not know that she was . PAST OBSTETRICAL HISTORY: Includes 3 vaginal deliveries at term. PAST MEDICAL HISTORY: Includes ovarian cyst and bilateral kidney stones. PAST SURGICAL HISTORY: Includes removal of cyst from right buttock as well as a right ureteral stent with stone removal. CURRENT MEDICATIONS: Motrin on a p.r.n. basis. ALLERGIES: NO KNOWN ALLERGIES. SOCIAL HISTORY: She smokes and drinks socially. FAMILY HISTORY: Unremarkable. REVIEW OF SYSTEMS: Denies fever, chills, cough, dizziness, or change in bowel or bladder habits. PHYSICAL EXAMINATION: VITAL SIGNS: In the emergency room, her vital signs are stable and she is afebrile. GENERAL: She is pleasant and in no acute distress. ABDOMEN: Soft. There is no guarding or rebound. PELVIC: Deferred. Of note was her original ultrasound done here, which showed an 8 cm axial uterus with an indeterminate and reportedly no flow to the left ovary. I did request that this be repeated. Upon repeating the exam, it could be seen that she had a small 6 week pole with no heart tones detected. On the left side, there was an echoic area, but there was flow to both sides. LABORATORY DATA: White count 12.0, hemoglobin and hematocrit 13.8 and 40.9. Platelets 258,000. Creatinine 0.67. Beta HCG is 582.6. ASSESSMENT: 1. Threatened AB vs. early demise 2. No evidence of adnexal torsion. PLAN: At this time, the patient is strongly desirous of . I think the best bet at this point would be to have her followup with serial beta HCGs and ultrasounds to determine whether a heartbeat will be seen. The sac does appear to be misshapen and the crown-rump length now measures six weeks three days, so I am most suspicious of an early demise. I have discussed these findings with Dr. Doyle and he will discharge the patient for outpatient followup. Job ID: [id number] MTDD
[2020-03-11 18:35] LABS: Chlamydia by PCR Not Detected (NotDetected); GC by PCR Not Detected (NotDetected)
== END 2020-03-09 17:01 | disposition home or self-care (01) ==
LOC: ERS 10:39
DX: O99.891 Other specified diseases and conditions complicating pregnancy (principal); R10.9 Unspecified abdominal pain; O99.331 Smoking (tobacco) complicating pregnancy, first trimester; F17.210 Nicotine dependence, cigarettes, uncomplicated
CPT/HCPCS: 36415; 76856; 80053; 81003; 81015; 82550; 83690; 84702; 84703; 85025; 86900; 86901; 87480; 87491; 87510; 87591; 87660; 96374; 96375; J1885; J2405; J3010; Q0162

== ENCOUNTER 2020-03-22 11:50 | Emergency (ER) | payer OTHER, SELFPAY ==
[2020-03-22 12:47] LABS: #Eosinphils 0.3 thou/uL (0.0-0.7); #Lymphocytes 1.8 thou/uL (1.20-3.40); #Monocytes 0.3 thou/uL (0.11-0.59); #Neutrophils 4.2 thou/uL (1.40-6.50); %Basophils 0.5 % (0.0-1.0); %Eosinophils 3.8 % (0.0-10.0); %Lymphocytes 27.7 % (21.0-51.0); %Monocytes 4.8 % (0.0-10.0); %Neutrophils 63.2 % (42.0-75.0); Hemoglobin 13.5 g/dL (12.0-16.0); Mean Corpuscular HGB CONC 33.6 g/dL (32.0-36.0); Mean Corpuscular Hemoglobin 31.6 pg (27.0-31.0); Mean Platelet Volume 7.5 fL (7.4-10.4); Platelet Count 268 thou/uL (130-400); RBC Distribution Width 10.9 % (11.5-14.5); Red Blood Cell (RBC) Count 4.28 mill/uL (4.20-5.40); White Blood Cell (WBC) Count 6.6 thou/uL (4.8-10.8)
== END 2020-03-22 13:24 | disposition home or self-care (01) ==
LOC: ERS 11:50
DX: O03.9 Complete or unspecified spontaneous abortion without complication (principal); F17.210 Nicotine dependence, cigarettes, uncomplicated
CPT/HCPCS: 36415; 84702; 85025; 99284

== ENCOUNTER 2021-12-06 14:07 | Emergency (ER) | payer OTHER, SELFPAY ==
[2021-12-06 15:02] LABS: #Eosinphils 0.1 thou/uL (0.0-0.7); #Lymphocytes 1.3 thou/uL (1.20-3.40); #Monocytes 0.9 thou/uL (0.11-0.59); #Neutrophils 11.6 thou/uL (1.40-6.50); %Basophils 0.2 % (0.0-1.0); %Eosinophils 0.9 % (0.0-10.0); %Lymphocytes 9.2 % (21.0-51.0); %Monocytes 6.5 % (0.0-10.0); %Neutrophils 83.2 % (42.0-75.0); Hemoglobin 12.3 g/dL (12.0-16.0); Mean Corpuscular HGB CONC 34.4 g/dL (32.0-36.0); Mean Corpuscular Hemoglobin 32.2 pg (27.0-31.0); Mean Corpuscular Volume 93.5 fL (78.0-98.0); Mean Platelet Volume 7.9 fL (7.4-10.4); Platelet Count 308 thou/uL (130-400); RBC Distribution Width 11.1 % (11.5-14.5); Red Blood Cell (RBC) Count 3.82 mill/uL (4.20-5.40); White Blood Cell (WBC) Count 13.9 thou/uL (4.8-10.8)
[2021-12-06 15:18] LABS: ALT (SGPT) 61 U/L (8-55); AST (SGOT) 21 U/L (5-34); Alkaline Phosphatase 85 U/L (40-110); Anion Gap 15 mmol/L (10-20); BUN (Urea Nitrogen) 8 mg/dL (7.0-18.7); Bilirubin, Total 1.1 mg/dL (0.2-1.2); Calc. Creatinine Clearance 0 mL/min (70-130); Calcium 9.3 mg/dL (7.8-10.44); Carbon Dioxide 22 mmol/L (22-29); Chloride 99 mmol/L (98-107); Estimated GFR 117; Globulin 3.6 g/dL (2.4-3.5); Glucose 98 mg/dL (70-105); Potassium 3.5 mmol/L (3.5-5.1); Protein, Total 7.6 g/dL (6.0-8.3); Sodium 132 mmol/L (136-145)
[2021-12-06] MEDS ORDERED: Cefepime 2 GM VIAL ONE (16:19)
[2021-12-06] MEDS ORDERED: VANCOMYCIN 1.75 GM/500 ML BAG 1.75 GM in Premix Bag 1 BAG IVPB SCH (16:30)
[2021-12-06] MEDS ORDERED: Ketorolac Tromethamine 30 MG/ML VIAL ONE (16:45)
[2021-12-06] MEDS ORDERED: Lidocaine 1% PF 5 ML VIAL ONE ×4 (16:47→17:32)
== END 2021-12-06 21:00 | disposition home or self-care (01) ==
LOC: ERS 14:07
DX: L03.116 Cellulitis of left lower limb (principal); L02.416 Cutaneous abscess of left lower limb; I10 Essential (primary) hypertension; F17.210 Nicotine dependence, cigarettes, uncomplicated; Z87.442 Personal history of urinary calculi
CPT/HCPCS: 10060; 36415; 80053; 83605; 85025; 87040; 96365; 96366; 96367; 96375; J0692; J1885; J3370

== ENCOUNTER 2024-11-06 05:22 | Emergency (ER) | payer SELFPAY | END 2024-11-06 07:35 | disposition left against medical advice (07) | LOC: ERS 05:22 | DX: Z53.21 Procedure and treatment not carried out due to patient leaving prior to being seen by health care provider (principal) ==

== ENCOUNTER 2025-01-28 05:23 | Emergency (ER) | payer OTHER ==
[2025-01-28] MEDS ORDERED: Cephalexin 250 MG CAP ONE (06:20)
== END 2025-01-28 06:27 | disposition home or self-care (01) ==
LOC: ERS 05:23
DX: L03.311 Cellulitis of abdominal wall (principal)